=== PATIENT | male | born 1945 | race African-American/Black ===

== ENCOUNTER 2021-08-10 11:08 | Emergency (ER) | payer OTHER ==
[~2021-08-10] VITALS: Ht 175.3 cm; Wt 113.4 kg
[2021-08-10 11:09] VITALS: BP 158/91
--- NOTE | 2021-08-10 11:09 | NUR ---
PT TAKEN TO ER BED 8. Addendum: 08/10/21 at 1110 by [email or web address] [place]
--- NOTE | 2021-08-10 11:13 | NUR ---
75 Y/O MALE BIBA C/O MECH FALL. PER EMS PT WAS AT [facility] STORE SLIPPED AND FELL ON RT SIDE, HEMATOMA TO BACK OF HEAD. C/O NUMBNESS TO RT INDEX FINGER AND 4/10 NECK PAIN. C-COLLAR IN PLACE. DENIES LOC. MEDHX: DM, HTN, "KIDNEY PROBLEMS", "HEART PROBLEMS" NKA
--- NOTE | 2021-08-10 11:24 | NUR ---
ERMD at bedside examining pt
[2021-08-10] MEDS ORDERED: HYDROcodone/APAP 5/325 MG 1 TAB TAB PO ONE (11:30)
--- NOTE | 2021-08-10 11:58 | NUR ---
PT TAKEN TO CT VIA [facility].
[2021-08-10] MEDS ORDERED: ACET-10509 PO (12:59)
--- NOTE | 2021-08-10 13:16 | NUR ---
[facility] CALL. ETA IS 45 MIN
[2021-08-10 13:45] VITALS: BP 158/91
== END 2021-08-10 13:45 | disposition home or self-care (01) ==
LOC: MED 11:08
DX: S16.1XXA Strain of muscle, fascia and tendon at neck level, initial encounter (principal); S09.90XA Unspecified injury of head, initial encounter; E11.9 Type 2 diabetes mellitus without complications; I10 Essential (primary) hypertension; W18.30XA Fall on same level, unspecified, initial encounter; Y93.89 Activity, other specified; Y92.89 Other specified places as the place of occurrence of the external cause; Y99.8 Other external cause status
CPT/HCPCS: 70450; 72125; 99285

== ENCOUNTER 2021-08-13 12:00 | Emergency (ER) | payer OTHER ==
[~2021-08-13] VITALS: Ht 180.3 cm; Wt 129.7 kg
[~2021-08-13 12:00] MED LIST: ACET-10509 PO
[2021-08-13 12:16] VITALS: BP 179/101
[2021-08-13] MEDS ORDERED: MECL-303 PO (13:16)
[2021-08-13] MEDS ORDERED: ACET-8386 PO (13:16)
[2021-08-13 13:27] VITALS: BP 179/101
--- NOTE | 2021-08-13 13:27 | NUR ---
Patient discharged with v/s stable. Written and verbal after care instructions given and explained. Patient alert, oriented and verbalized understanding of instructions. Ambulatory with steady gait. All questions addressed prior to discharge. ID band removed. Patient advised to follow up with PMD. Rx of HYDROCODONE-ACETAMINOPHEN, AND ANTIVERT given. Patient educated on indication of medication including possible reaction and side effects. Opportunity to ask questions provided and answered.
--- NOTE | 2021-08-13 13:27 | NUR ---
NO NURSING INTERVENTIONS IMPLEMENTED
== END 2021-08-13 13:27 | disposition home or self-care (01) ==
LOC: MED 12:00
DX: S16.1XXA Strain of muscle, fascia and tendon at neck level, initial encounter (principal); G89.29 Other chronic pain; R42 Dizziness and giddiness; E11.9 Type 2 diabetes mellitus without complications; I10 Essential (primary) hypertension; Z79.899 Other long term (current) drug therapy; W19.XXXA Unspecified fall, initial encounter; Y93.89 Activity, other specified; Y92.89 Other specified places as the place of occurrence of the external cause; Y99.8 Other external cause status
CPT/HCPCS: 99283